=== PATIENT | female | born 1955 | race American Indian/Alaskan Native ===

== ENCOUNTER 2019-08-13 18:08 | Emergency (ER) | payer MEDICAID ==
--- NOTE | 2019-08-13 19:12 | Emergency Department Report ---
ED General Adult HPI - General Chief complaint: Fall Stated complaint: GROUNG LEVEL FALL Time Seen by Provider: 08/13/19 18:20 Source: patient, family, EMS (EMS records not available at time of chart dictation.), RN notes reviewed Mode of arrival: Stretcher Limitations: Other (the patient is a poor historian) - History of Present Illness Initial comments: This is a 66-year-old female. This patient is not known to this provider previously. She has a history of hypertension, multiple strokes, and as per family, was recently admitted to [facility], for 4-5 days, and was evaluated for possible neurosyphilis, and as per her son, ruled out for neurosyphilis. The patient typically lives at home with her son, and his . 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 This morning, she was in her usual state of health. Apparently, she was walking from her bedroom to the bathroom, and had an unwitnessed fall. The patient indicates she was not having any pain or symptoms prior to the fall, but she is not sure if she "fell out." As per family, they heard a thud, went into the bedroom, and found the patient to be unresponsive. She had apparently defecated on herself. She then apparently woke up, and was "foaming at the mouth", and making nonsensical sounds. The patient has no recollection of this. The patient denies physical pain at this time. The patient states "my brain is working better than yours." The patient is asking to go home. At the moment, the patient denies headache, neck pain, chest pain, abdominal pain, shortness of breath, and denies new or worsened weakness and/or numbness. Family is not sure if the patient has had any medication changes or adjustments. -: Sudden Severity scale (0 -10): 0 Consistency: now resolved Improves with: none Worsens with: none - Related Data Home Medications Medication Instructions Recorded Confirmed Last Taken Aspirin EC [Halfprin EC] 81 mg PO QDAY 08/13/19 08/13/19 Unknown Atorvastatin Calcium [Lipitor] 80 mg PO QHS 08/13/19 08/13/19 Unknown Cyanocobalamin [Vitamin B-12] 1,000 mcg PO DAILY 08/13/19 08/13/19 Unknown Ergocalciferol (Vitamin D2) 50,000 unit PO QWEEK 08/13/19 08/13/19 Unknown [Vitamin D2] Lisinopril/Hydrochlorothiazide 1 tab PO QDAY 08/13/19 08/13/19 Unknown [Zestoretic 20-12.5 mg] Multivitamin [Daily Multiple 1 each PO QDAY 08/13/19 08/13/19 Unknown Vitamin] Pen G Lizandro/Pen G Procaine 1,200,000 unit IM QWEEK MDD 2 DOSES 08/13/19 08/13/19 Unknown [Bicillin C-R 1.2 Million Unit] Thiamine [Vitamin B-1] 100 mg PO QDAY 08/13/19 08/13/19 Unknown hydrALAZINE [Apresoline] 25 mg PO Q8HR 08/13/19 08/13/19 Unknown metFORMIN [Glucophage] 500 mg PO QDAY 08/13/19 08/13/19 Unknown Allergies Allergy/AdvReac Type Severity Reaction Status Date / Time Penicillins AdvReac Hives Verified 08/13/19 18:30 ED Review of Systems ROS: Stated complaint: GROUNG LEVEL FALL Other details as noted in HPI Constitutional: denies: fever Eyes: denies: eye discharge ENT: denies: congestion Respiratory: denies: wheezing Cardiovascular: syncope (possible syncope, the patient is not sure). denies: chest pain Gastrointestinal: denies: nausea, vomiting Genitourinary: denies: dysuria Musculoskeletal: denies: back pain Neurological: confusion Hematological/Lymphatic: denies: easy bleeding ED Past Medical Hx - Past Medical History Previous Medical History?: Yes Hx Hypertension: Yes Hx CVA: Yes (7 stroke) Additional medical history: neurosyphillis. left side weakness from previous stroke - Social History Smoking Status: Current Every Day Smoker Substance Use Type: Marijuana - Medications Home Medications: Home Medications Medication Instructions Recorded Confirmed Last Taken Type Aspirin EC [Halfprin EC] 81 mg PO QDAY 08/13/19 08/13/19 Unknown History Atorvastatin Calcium [Lipitor] 80 mg PO QHS 08/13/19 08/13/19 Unknown History Cyanocobalamin [Vitamin B-12] 1,000 mcg PO DAILY 08/13/19 08/13/19 Unknown History Ergocalciferol (Vitamin D2) 50,000 unit PO QWEEK 08/13/19 08/13/19 Unknown History [Vitamin D2] Lisinopril/Hydrochlorothiazide 1 tab PO QDAY 08/13/19 08/13/19 Unknown History [Zestoretic 20-12.5 mg] Multivitamin [Daily Multiple 1 each PO QDAY 08/13/19 08/13/19 Unknown History Vitamin] Pen G Lizandro/Pen G Procaine 1,200,000 unit IM QWEEK MDD 2 DOSES 08/13/19 08/13/19 Unknown History [Bicillin C-R 1.2 Million Unit] Thiamine [Vitamin B-1] 100 mg PO QDAY 08/13/19 08/13/19 Unknown History hydrALAZINE [Apresoline] 25 mg PO Q8HR 08/13/19 08/13/19 Unknown History metFORMIN [Glucophage] 500 mg PO QDAY 08/13/19 08/13/19 Unknown History ED Physical Exam - General Limitations: Other (the patient is a poor historian.) General appearance: alert, in no apparent distress - Head Head exam: Present: atraumatic, normocephalic - Eye Eye exam: Present: normal appearance, EOMI, other (visual acuity intact to finger counting in color perception at a close distance). Absent: nystagmus - ENT ENT exam: Present: mucous membranes moist - Neck Neck exam: Present: normal inspection, full ROM. Absent: tenderness, meningismus - Respiratory Respiratory exam: Present: normal lung sounds bilaterally. Absent: respiratory distress - Cardiovascular Cardiovascular Exam: Present: regular rate, normal rhythm, normal heart sounds. Absent: bradycardia, tachycardia, irregular rhythm, systolic murmur, diastolic murmur, rubs, gallop - GI/Abdominal GI/Abdominal exam: Present: soft. Absent: distended, tenderness, guarding, rebound, rigid, pulsatile mass - Extremities Exam Extremities exam: Present: normal inspection, full ROM, other (2+ pulses noted in the bilateral upper and lower extremities. The pelvis is stable. There is no long bony tenderness. The muscular compartments are soft. There is no redness, pus, streaking or erythema.). Absent: pedal edema, calf tenderness - Back Exam Back exam: Present: normal inspection. Absent: tenderness, CVA tenderness (R), CVA tenderness (L), paraspinal tenderness, vertebral tenderness - Neurological Exam Neurological exam: Present: alert (the patient is alert to name, location. She does not know the year. She is able to identify son and his by name.), other (there is no facial droop. The tongue is midline. Extraocular movements are intact bilaterally. Speaking in full sentences. Hearing is grossly intact. 5 out of 5 strength bilateral upper and lower extremities. Sensation is intact to light touch bilateral upper and lower extremities.) - Psychiatric Psychiatric exam: Present: anxious - Skin Skin exam: Present: warm, dry, intact, normal color. Absent: rash ED Course Vital Signs 08/13/19 08/13/19 08/13/19 18:30 18:36 18:58 Temperature 98.2 F Pulse Rate 76 83 Respiratory 14 22 22 Rate Blood Pressure 143/78 143/78 Blood Pressure 143/78 [Left] O2 Sat by Pulse 98 98 Oximetry 08/13/19 08/13/19 08/13/19 19:30 20:00 20:31 Temperature 98.1 F Pulse Rate 85 71 76 Respiratory 18 16 13 Rate Blood Pressure 163/71 161/71 Blood Pressure 156/78 [Left] O2 Sat by Pulse 98 98 97 Oximetry 08/13/19 21:01 Temperature Pulse Rate 81 Respiratory 19 Rate Blood Pressure 167/87 Blood Pressure [Left] O2 Sat by Pulse 98 Oximetry - Reevaluation(s) Reevaluation #1: 08/13/19 19:10 Differential diagnosis, including but not limited to: Mechanical slip and fall, concussion, intracranial injury, cervical spine injury, pneumonia, urinary tract infection, electrolyte derangement, thyroid derangement Assessment and plan: 66-year-old female who is currently awake and alert, moving 4 extremities, neurologically at her baseline as per family, with an unwitnessed fall, and nonspecific confused sounds and possible foaming after blunt head trauma. She is moving 4 extremities, and asking to go home. She is not tachycardic, tachypnea or hypoxic. I suspect that the patient had a mechanical fall, and is likely experiencing natural sequela of blunt head trauma and/or concussion. CT scan of the brain, cervical spine, EKG, urinalysis, appropriate screening laboratory studies, x-ray the chest, x-ray of the pelvis ordered. I have requested the patient's medications be Reconciled. Patient has not endorsed chest pain. Reevaluation #2: 08/13/19 20:52 Patient eating ice chips and in no acute distress. States "thank you." Is asking to go home. Laboratory studies reviewed and appreciated, they're fairly unremarkable with the exception of decreased bicarbonate at 16. IV fluids ordered, urinalysis pending, repeat troponin, repeat EKG pending at this time. Repeat basic metabolic panel pending at this time. Reevaluation #3: 08/13/19 21:57 Repeat laboratory studies reviewed and appreciated. Troponin negative 2. Repeat EKG unchanged. Patient in no acute distress. Suitable to follow-up as an outpatient. Discussed this with family and patient. Return precautions were reviewed. 08/13/19 21:57 a case management consultation was ordered to see if patient will be eligible for home health, for home physical therapy. ED Medical Decision Making - Lab Data Result diagrams: 08/13/19 19:07 08/13/19 20:57 Vital Signs 08/13/19 08/13/19 18:36 18:58 Temperature 98.2 F Pulse Rate 83 Respiratory 22 22 Rate Blood Pressure 143/78 Blood Pressure 143/78 [Left] O2 Sat by Pulse 98 Oximetry Vital Signs 08/13/19 08/13/19 08/13/19 18:36 18:58 19:30 Temperature 98.2 F 98.1 F Pulse Rate 83 85 Respiratory 22 22 18 Rate Blood Pressure 143/78 Blood Pressure 143/78 156/78 [Left] O2 Sat by Pulse 98 98 Oximetry Lab Results 08/13/19 08/13/19 08/13/19 Range/Units 19:07 19:07 19:07 WBC 8.7 (4.5-11.0) K/mm3 RBC 4.87 (3.65-5.03) M/mm3 Hgb 12.7 (10.1-14.3) gm/dl Hct 38.8 (30.3-42.9) % MCV 80 (79-97) fl MCH 26 L (28-32) pg MCHC 33 (30-34) % RDW 15.0 (13.2-15.2) % Plt Count 339 (140-440) K/mm3 PT 13.8 (12.2-14.9) Sec. INR 1.05 (0.87-1.13) Sodium 138 (137-145) mmol/L Potassium 4.1 (3.6-5.0) mmol/L Chloride 103.4 (98-107) mmol/L Carbon Dioxide 16 L (22-30) mmol/L Anion Gap 23 mmol/L BUN 14 (7-17) mg/dL Creatinine 1.0 (0.7-1.2) mg/dL Estimated GFR > 60 ml/min BUN/Creatinine Ratio 14 % Glucose 145 H (65-100) mg/dL Calcium 9.6 (8.4-10.2) mg/dL Magnesium 2.30 (1.7-2.3) mg/dL Total Bilirubin 0.30 (0.1-1.2) mg/dL AST 109 H (5-40) units/L ALT 90 H (7-56) units/L Alkaline Phosphatase 160 H (35-129) units/L Total Creatine Kinase 125 (30-135) units/L Troponin T < 0.010 (0.00-0.029) ng/mL Total Protein 8.0 (6.3-8.2) g/dL Albumin 3.8 L (3.9-5) g/dL Albumin/Globulin Ratio 0.9 % TSH (0.270-4.200) mlU/mL Salicylates (2.8-20.0) mg/dL Acetaminophen (10.0-30.0) ug/mL 08/13/19 08/13/19 08/13/19 Range/Units 19:07 19:07 19:07 WBC (4.5-11.0) K/mm3 RBC (3.65-5.03) M/mm3 Hgb (10.1-14.3) gm/dl Hct (30.3-42.9) % MCV (79-97) fl MCH (28-32) pg MCHC (30-34) % RDW (13.2-15.2) % Plt Count (140-440) K/mm3 PT (12.2-14.9) Sec. INR (0.87-1.13) Sodium (137-145) mmol/L Potassium (3.6-5.0) mmol/L Chloride (98-107) mmol/L Carbon Dioxide (22-30) mmol/L Anion Gap mmol/L BUN (7-17) mg/dL Creatinine (0.7-1.2) mg/dL Estimated GFR ml/min BUN/Creatinine Ratio % Glucose (65-100) mg/dL Calcium (8.4-10.2) mg/dL Magnesium (1.7-2.3) mg/dL Total Bilirubin (0.1-1.2) mg/dL AST (5-40) units/L ALT (7-56) units/L Alkaline Phosphatase (35-129) units/L Total Creatine Kinase (30-135) units/L Troponin T (0.00-0.029) ng/mL Total Protein (6.3-8.2) g/dL Albumin (3.9-5) g/dL Albumin/Globulin Ratio % TSH 2.070 (0.270-4.200) mlU/mL Salicylates < 0.3 L (2.8-20.0) mg/dL Acetaminophen < 5.0 L (10.0-30.0) ug/mL - EKG Data -: EKG Interpreted by Sc EKG shows normal: sinus rhythm Rate: normal - EKG Data 08/13/19 19:12 There is no prior EKG available for comparison. The EKG shows a sinus rhythm, normal axis, QTC is 452 ms, Q waves noted in the inferior leads, nonspecific T- wave abnormalities, there is no prior EKG available, this EKG is not consistent with STEMI. The EKG is abnormal. - Radiology Data Radiology results: pending, report reviewed, image reviewed Noncontrast CT scan of the brain, cervical spine negative for acute disease. X- ray the chest, x-ray of the pelvis negative for acute disease Critical care attestation.: If time is entered above; I have spent that time in minutes in the direct care of this critically ill patient, excluding procedure time. ED Disposition Clinical Impression: History of fall Disposition: DC-01 TO HOME OR SELFCARE Is pt being admited?: No Does the pt Need Aspirin: No Condition: Stable Additional Instructions: Recommend the patient not drive or operate motor vehicles for the next 6 months. Recommend patient avoid alcohol, and sedating medications and/or substances. Recommend patient follow up with her outpatient primary care doctor within the next 7 days. Please return to the emergency room right away with projectile vomiting, change in mental status, confusion, inability to tolerate liquid feeds. Recommend that an adult be present with the patient Patient may continue home medications. The case management consultation was requested to determine if patient is eligible for home health aide, or home physical therapy. Patient should be contacted at the listed phone number by case management within the next 24-48 hours. However, family can also follow-up with her own primary care doctor to further investigate this, if they so desired Referrals: DEAN HINSON MD [Primary Care Provider] - 3-5 Days
[2019-08-13 19:32] LABS: Hematocrit 38.8 % (30.3-42.9); Hemoglobin 12.7 gm/dl (10.1-14.3); Mean Corpuscular HGB Conc 33 % (30-34); Mean Corpuscular Volume 80 fl (79-97); Platelet Count 339 K/mm3 (140-440); Red Blood Count 4.87 M/mm3 (3.65-5.03)
[2019-08-13 19:43] LABS: INR 1.05 (0.87-1.13)
--- NOTE | 2019-08-13 19:55 | Cat Scan Report ---
CT head/brain wo con INDICATION / CLINICAL INFORMATION: 66 years Female; fall head trauma confusion. TECHNIQUE: Routine CT head without contrast. All CT scans at this location are performed using CT dos e reduction for ALARA by means of automated exposure control. COMPARISON: None. FINDINGS: BRAIN / INTRACRANIAL CONTENTS: There is extensive cerebral and pontine white matter disease most cons istent with microvascular angiopathy. There is an older infarct involving the left simmons radiata wit h encephalomalacia. There are smaller old lacunar infarcts involving the basal ganglia and thalami. There is mild cerebral atrophy. The ventricular system is correspondingly appropriate in size and con figuration. There is no CT evidence of acute intracranial hemorrhage or significant mass effect. ORBITS: No significant abnormality of visualized orbits. SINUSES / MASTOIDS: No significant abnormality the visualized paranasal sinuses or mastoid air cells. CRANIOCERVICAL JUNCTION: No significant abnormality. ADDITIONAL FINDINGS: None. IMPRESSION: 1. 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 2. There is no CT evidence of acute intracranial hemorrhage. Signer Name: Koko Zarate MD Signed: 08/13/2019 7:51 PM Workstation Name: [id number]
--- NOTE | 2019-08-13 20:01 | Cat Scan Report ---
CT cervical spine wo con INDICATION / CLINICAL INFORMATION: 66 years Female; fall hit head confusion. TECHNIQUE: Axial CT images of the cervical spine were obtained. Sagittal and coronal reformatted images were pr oduced. All CT scans at this location are performed using CT dose reduction for ALARA by means of aut omated exposure control. COMPARISON: None available. FINDINGS: POST-SURGICAL CHANGES: None. ALIGNMENT: There is slight reversal of the cervical lordosis without significant spondylolisthesis. VERTEBRAE: The motion and beam hardening degrade the image quality at. However, there is no clear CT evidence of acute fracture involving the cervical spine. There are multilevel mild degenerative endp late changes at. INTRAVERTEBRAL DISCS: The posterior spondylosis at C3-4 effaces the ventral subarachnoid space. There is moderate to marked left neural foraminal narrowing. The disc bulge at C4-5 also appears to efface the ventral subarachnoid space. There is milder posterior spondylosis at C5-6 at. There is moderate neural foraminal narrowing bilate rally at. There also appears be mild disc bulge with mild neural foraminal narrowing bilaterally at C 6-7. PARASPINAL SOFT TISSUES: No prevertebral soft tissue fluid collections are identified. ADDITIONAL FINDINGS: None. IMPRESSION: 1. There is no clear CT evidence of acute fracture involving the cervical spine. 2. There are multilevel degenerative changes as detailed above. Signer Name: Koko Zarate MD Signed: 08/13/2019 7:57 PM Workstation Name: [id number]
--- NOTE | 2019-08-13 20:04 | XRay Report ---
PELVIS 1 VIEW(S) INDICATION / CLINICAL INFORMATION: fall from stabnding COMPARISON: None available. FINDINGS: BONES / JOINT(S): No acute fracture or subluxation. SOFT TISSUES: No significant abnormality. Signer Name: German Mar MD Signed: 08/13/2019 8:00 PM Workstation Name: [id number]
[2019-08-13 20:08] LABS: Alanine Aminotransferase 90 units/L (7-56); Albumin 3.8 g/dL (3.9-5); BUN/Creatinine Ratio 14; Blood Urea Nitrogen 14 mg/dL (7-17); Calcium 9.6 mg/dL (8.4-10.2); Hemolysis Index 52
--- NOTE | 2019-08-13 20:37 | XRay Report ---
CHEST 1 VIEW INDICATION / CLINICAL INFORMATION: weak fall. COMPARISON: None available. FINDINGS: SUPPORT DEVICES: None. HEART / MEDIASTINUM: No significant abnormality. LUNGS / PLEURA: No significant pulmonary or pleural abnormality. No pneumothorax. IMPRESSION: No acute finding. Signer Name: German Mar MD Signed: 08/13/2019 8:33 PM Workstation Name: [id number]
[2019-08-13] MEDS ORDERED: SODIUM CHLORIDE 0.9% 500 ML 500 ML IV ONE (20:41)
[2019-08-13 21:28] LABS: Bilirubin,Urine NEG (Negative); Blood,Urine NEG (Negative); Color,Urine Yellow (Yellow); Protein,Urine <15 mg/dL mg/dL (Negative)
[2019-08-13 21:29] LABS: BUN/Creatinine Ratio 14; Blood Urea Nitrogen 15 mg/dL (7-17); Calcium 9.9 mg/dL (8.4-10.2); Hemolysis Index 87
[2019-08-13 22:55] VITALS: BP 173/68
== END 2019-08-13 22:55 | disposition home or self-care (01) ==
LOC: ED 18:08 → EDBD 18:08 → ED 22:55
DX: R51 Headache (principal); M54.2 Cervicalgia; R07.89 Other chest pain; I10 Essential (primary) hypertension; F17.200 Nicotine dependence, unspecified, uncomplicated; F12.10 Cannabis abuse, uncomplicated; Z86.73 Personal history of transient ischemic attack (TIA), and cerebral infarction without residual deficits; Z79.899 Other long term (current) drug therapy; Z88.0 Allergy status to penicillin; Z91.81 History of falling
CPT/HCPCS: 36415; 70450; 71045; 72125; 72170; 80048; 80053; 81001; 82550; 83735; 84443; 84484; 85027; 85610; 93005; 93010; 99285; J7040; 80320; G0480